=== PATIENT | male | born 1955 | race Two or more races ===

== ENCOUNTER 2019-11-10 08:39 | Inpatient (IN) | payer OTHER, BC ==
[2019-11-10] MEDS ORDERED: ASPIRIN 81 MG CHEWABLE TABLETS PO ONE (08:51)
[2019-11-10] MEDS ORDERED: ASPIRIN COATED 81 MG TABLET.EC PO ONE (08:57)
--- NOTE | 2019-11-10 09:02 | PDOC ---
History of Present Illness - General Chief Complaint: Chest Pain Stated Complaint: Chest Pain Time Seen by Provider: 11/10/19 08:55 History Source: Patient Exam Limitations: No Limitations - History of Present Illness Initial Comments: 11/10/19 08:59 64y M with PMH of CAD s/p stent x6, PPM, HTN, T2DM presenting to the ER today for chest pain x1 week. Pt states pain is worse with exertion. Associated with SOB. Denies cough, congestion, fever, n/v/d, sick contacts. Stents were placed around 7 years ago at [facility]. He states he was scheduled to get a stress test today but he had a coffee and breakfast and it was cancelled. PMD: Jimmy Cards: none PMH: see hpi PSH: see hpi Meds: carvedilol, glipizide, asa 81mgx2, isosorbide Social: denies Past History - Medical History Allergies/Adverse Reactions: Allergies Allergy/AdvReac Type Severity Reaction Status Date / Time No Known Allergies Allergy Verified 11/10/19 08:48 Home Medications: Ambulatory Orders Aspirin [Aspirin EC] 81 mg PO DAILY 11/10/19 Atorvastatin Calcium 40 mg PO HS 11/10/19 Carvedilol [Coreg -] 12.5 mg PO BID 11/10/19 Glipizide [Glipizide Xl] 10 mg PO BID 11/10/19 Isosorbide Mononitrate [Isosorbide Mononitrate ER] 30 mg PO DAILY 11/10/19 Valsartan 320 mg PO DAILY 11/10/19 metFORMIN HCL [Metformin HCl] 850 mg PO BID 11/10/19 - Psycho-Social/Smoking History Smoking History: Unknown if ever smoked Have you smoked in the past 12 months: No Information on smoking cessation initiated: No - Substance Abuse Hx (Audit-C & DAST Scrn) How often the patient has a drink containing alcohol: Never Score: In Men: 4 or > Positive; In Women: 3 or > Positive: 0 Screen Result (Pos requires Nsg. Audit-10AR): Negative In the last yr the pt used illegal drug/Rx for NonMed reason: No Score: Yes response is considered Positive: 0 Screen Result (Positive result requires Nsg. DAST-10): Negative Review of Systems - Review of Systems Constitutional: No: Symptoms Reported HEENTM: No: Symptoms Reported Respiratory: Yes: See HPI Cardiac (ROS): Yes: See HPI ABD/GI: No: Symptoms Reported : No: Symptoms Reported Musculoskeletal: No: Symptoms Reported Integumentary: No: Symptoms Reported Neurological: No: Symptoms reported *Physical Exam - Vital Signs Last Vital Signs Temp Pulse Resp BP Pulse Ox 98.6 F 90 13 102/75 97 11/10/19 08:42 11/10/19 10:48 11/10/19 10:48 11/10/19 10:48 11/10/19 10:48 - Physical Exam General Appearance: Yes: Nourished, Appropriately Dressed. No: Apparent Distress HEENT: positive: EOMI, MICHELLE Neck: positive: Trachea midline, Supple Respiratory/Chest: positive: Lungs Clear, Normal Breath Sounds. negative: Rapid RR, Decreased Breath Sounds, Paradoxal Breathing, Crackles, Rales, Rhonchi Cardiovascular: positive: Regular Rhythm, S1, S2, Tachycardia. negative: Edema, JVD, Murmur Vascular Pulses: Dorsalis-Pedis (R): 2+, Doralis-Pedis (L): 2+ Gastrointestinal/Abdominal: positive: Normal Bowel Sounds, Soft. negative: Tender Musculoskeletal: negative: CVA Tenderness Extremity: positive: Normal Capillary Refill. negative: Pedal Edema, Swelling, Calf Tenderness Integumentary: positive: Normal Color, Dry, Warm Neurologic: positive: safety inspector II-XII NML intact, Fully Oriented, Alert, Normal Mood/Affect, Normal Response, Motor Strength 5/5 ED Treatment Course - LABORATORY CBC & Chemistry Diagram: 11/10/19 09:05 11/10/19 09:04 - ADDITIONAL ORDERS Additional order review: Laboratory Results 11/10/19 11/10/19 11/10/19 11:30 09:05 09:05 PT with INR 11.90 INR 1.01 PTT (Actin FS) 35.2 Sodium Potassium Chloride Carbon Dioxide Anion Gap BUN Creatinine Est GFR (CKD-EPI)AfAm Est GFR (CKD-EPI)NonAf Random Glucose Calcium Magnesium Total Bilirubin AST ALT Alkaline Phosphatase Creatine Kinase Troponin I 3.44 H* Total Protein Albumin Blood Type O POSITIVE Antibody Screen Negative 11/10/19 09:04 PT with INR INR PTT (Actin FS) Sodium 137 Potassium 4.3 Chloride 104 Carbon Dioxide 24 Anion Gap 9 BUN 19.6 H Creatinine 1.2 Est GFR (CKD-EPI)AfAm 72.59 Est GFR (CKD-EPI)NonAf 62.63 Random Glucose 232 H Calcium 8.9 Magnesium 1.6 L Total Bilirubin 0.8 AST 31 ALT 27 Alkaline Phosphatase 79 Creatine Kinase 117 Troponin I 2.79 H* Total Protein 6.7 Albumin 3.4 Blood Type Antibody Screen 11/10/19 09:05 RBC 4.69 MCV 87.9 MCHC 32.5 RDW 13.7 MPV 7.8 Neutrophils % 57.0 Lymphocytes % 30.2 Monocytes % 7.8 Eosinophils % 3.9 Basophils % 1.1 - RADIOLOGY Radiology Studies Ordered: Category Date Time Status CHEST X-RAY PORTABLE* [RAD] Stat Radiology 11/10/19 08:51 Completed - Medications Given in the ED: ED Medications Discontinued Medications Generic Name Dose Route Start Last Admin Trade Name Freq PRN Reason Stop Dose Admin Aspirin 324 mg 11/10/19 08:51 11/10/19 09:25 Asa - PO 11/10/19 08:52 Not Given ONCE ONE Aspirin 162 mg 11/10/19 08:57 11/10/19 09:25 Ecotrin - PO 11/10/19 08:58 162 mg ONCE ONE Administration Clopidogrel Bisulfate 300 mg 11/10/19 12:03 11/10/19 12:32 Plavix - PO 11/10/19 12:04 300 mg ONCE ONE Administration Heparin Sodium (Porcine) 5,000 unit 11/10/19 12:04 11/10/19 13:05 Heparin - SQ 11/10/19 12:05 5,000 unit ONCE ONE Administration Nitroglycerin 0.4 mg 11/10/19 10:35 11/10/19 10:39 Nitrostat - SL 11/10/19 10:36 0.4 mg ONCE ONE Administration Medical Decision Making - Medical Decision Making 11/10/19 14:05 64y m with pmh of cad s/p stent x6, ppm, htn, hld presenting to the er for exertional cp and [place]. vitals; tachycardic otherwise wnl ekg: normal rate, twi in v1. biphasic t wave in V2? ddx includes mi, less likely pe, pna, ptx, covid -cardiac labs, coags, ts, cbc, cmp -ekg, cxr -asa 162 (pt took 81mg x2 already) normal cbc mag 1.6, electrolytes wnl. trop 2.7. rpt ekg without significant changes. pt still with mild pain, will give SL nitro consulted cardiology: plavix 300mg and heparin. rpt trop 3. endorsed to dr. Jain. admitted to tele 11/10/19 14:07 Discharge - Discharge Information Problems reviewed: Yes Clinical Impression/Diagnosis: NSTEMI (non-ST elevated myocardial infarction) CAD (coronary artery disease) Qualifiers: Coronary Disease-Associated Artery/Lesion type: unspecified vessel or lesion type [place] vs. transplanted heart: [place] heart Associated angina: with unstable angina Qualified Code(s): I25.110 - Atherosclerotic heart disease of [place] coronary artery with unstable angina pectoris Condition: Fair - Admission Yes - Follow up/Referral - Patient Discharge Instructions - Post Discharge Activity
[2019-11-10 09:06] VITALS: BMI 31.3
--- OUTSIDE RECORDS SUMMARY | 2019-11-10 09:07 | XMS ---
:1955 Author Organization [facility] Care Team Providers Name Role Phone Tejinder Novak Unavailable Unavailable Re-disclosure Warning The records that you are about to access may contain information from federally- assisted alcohol or drug abuse programs. If such information is present, then the following federally mandated warning applies: This information has been disclosed to you from records protected by federal confidentiality rules (42 CFR part 2). The federal rules prohibit you from making any further disclosure of this information unless further disclosure is expressly permitted by the written consent of the person to whom it pertains or as otherwise permitted by 42 CFR part 2. A general authorization for the release of medical or other information is NOT sufficient for this purpose. The Federal rules restrict any use of the information to criminally investigate or prosecute any alcohol or drug abuse patient.The records that you are about to access may contain highly sensitive health information, the redisclosure of which is protected by Article 27-F of the [place] [facility] Public Health law. If you continue you may haveaccess to information: Regarding HIV / AIDS; Provided by facilities licensed or operated by the [facility] Office of Mental Health; or Provided by the [facility] Office for People With Developmental Disabilities. If such information is present, then the following [facility] mandated warning applies: This information has been disclosed to you from confidential records which are protected by state law. State law prohibits you from making any further disclosure of this information without the specific written consent of the person to whom it pertains, or as otherwise permitted by law. Any unauthorized further disclosure in violation of state law may result in a fine or intermediate sentence or both. A general authorization for the release of medical or other information is NOT sufficient authorization for further disclosure. Allergies and Adverse Reactions Type Description Substance Reaction Status Data Source(s ) LISINOPRIL Amino Acids cough, rash [facility] ([facility] ) Encounters Encounter Providers Location Date Indications Data Source(s ) Outpatient Attender: Tejinder Novak 08/01/2019 [facility] EN ([facility] 07:58:00 [facility] ) Outpatient Attender: Tejinder Job 08/02/2018 [facility] EN ([facility] 08:59:00 PM [facility]) Medications Medication Brand Start Product Dose Route Administrative Pharmacy [facility] Indications Reaction Description Data Name Date Form Instructions Instructions Source(s) Losartan LOSART take 1 tablet RP NEXTGEN Potassium AN by oral route ( [facility] 100 MG Oral POTASS every day M edical - Tablet 100 IUM [facility] [place] mg 100 mg [facility] ) This may be an active medication. No end date is available. Start date above may not reflect actual date the medication was s tarted. Metformin METFORMIN HCL take 1 tablet RP [facility] hydrochloride 850 MG by oral route ([facility] Oral Tablet 850 mg 2 times every Medical - [facility] 850 mg day with [facility] morning and Group [facility] ) evening meals This may be an active medication. No end date is available. Start date above may not reflect actual date the medication was s tarted. Aspirin 81 MG ASPIRIN take 2 tablet by RP NEXTGEN ([facility] Chewable Tablet 81 oral route every [facility] - [facility] [place] mg 81 mg day Medical Joan up ) This may be an active medication. No end date is available. Start date above may not reflect actual date the medication was s tarted. 125 mcg (5,000 unit) take 1 capsule by RP NEXTGEN ([facility] 125 mcg (5,000 unit) oral route every [facility] week for 1 morning [facility] ) This may be an active medication. No end date is available. Start date above may not reflect actual date the medication was s tarted. clopidogrel 75 MG CLOPIDOGREL take 1 tablet RP NEXTGEN ([facility] Oral Tablet 75 mg 75 by oral route [facility] - [place] mg every day Medical Gr oup PC) This may be an active medication. No end date is available. Start date above may not reflect actual date the medication was s tarted. carvedilol 12.5 CARVEDILOL 08/02/2018 TAKE 1 AND RP [facility] MG Oral Tablet 12:00:00 AM EDT 1/2 TABLETS ([facility] 12.5 mg 12.5 mg TWICE A DAY Medical - [facility]) This may be an active medication. No end date is available. Fenofibrate 160 FENOFIBRATE 05/22/2015 take 1 RP NEXT[facility] MG Oral Tablet 12:00:00 AM EDT tablet by ([facility] 160 mg 160 mg oral route [facility] every day [facility]) This may be an active medication. No end date is available. atorvastatin 40 ATORVASTATIN 04/16/2015 take 1 RP [facility] MG Oral Tablet CALCIUM 12:00:00 AM tablet by ([facility] 40 mg 40 mg EST oral [facility] route [facility] every day Group PC) This may be an active medication. No end date is available. Insurance Providers Payer name Policy type Policy ID Covered Covered republican's Policy P paradise / Coverage republican ID relationship to [employer] type [employer] PPO [id number] SP [id number] MEDICARE [id number] SP [id number] [place] [id number] 1 [id number] Plan [facility]
[2019-11-10] MEDS ORDERED: ASPIRIN 81 MG CHEWABLE TABLETS ONE (09:17)
[2019-11-10 09:47] LABS: BASO % 1.1 % (0-2.0); EOS % 3.9 % (0-4.5); HEMATOCRIT 41.3 % (35.4-49); HEMOGLOBIN 13.4 GM/dL (11.7-16.9); LYMPH % 30.2 % (8-40); MCH 28.6 pg (25.7-33.7); MCHC 32.5 g/dl (32.0-35.9); MEAN CELL VOLUME 87.9 fl (80-96); MEAN PLT VOLUME 7.8 fl (7.5-11.1); MONO % 7.8 % (3.8-10.2); PLATELET COUNT 233 K/MM3 (134-434); RBC 4.69 M/mm3 (4.00-5.60); RDW 13.7 % (11.9-15.9)
[2019-11-10 09:55] LABS: INR 1.01 (0.83-1.09); PROTHROMBIN TIME (PATIENT) 11.9 SEC (9.7-13.0)
[2019-11-10 09:58] LABS: ACTIVATED PTT 35.2 SECONDS (25.2-36.5)
[2019-11-10 10:20] LABS: ALBUMIN 3.4 g/dl (3.4-5.0); BILIRUBIN,TOTAL 0.8 mg/dL (0.2-1); BLOOD UREA NITROGEN 19.6 mg/dL (7-18); CALCIUM 8.9 mg/dL (8.5-10.1); CREATININE 1.2 mg/dL (0.55-1.3); MAGNESIUM 1.6 mg/dL (1.8-2.4); POTASSIUM 4.3 mmol/L (3.5-5.1); TOT PROT 6.7 g/dl (6.4-8.2)
[2019-11-10] MEDS ORDERED: NITROGLYCERIN SUBLINGUAL 1/150 0.4 MG TAB SL ONE (10:35)
[2019-11-10] MEDS ORDERED: CLOPIDOGREL BISULFATE 300 MG TABLET PO ONE (12:03)
[2019-11-10] MEDS ORDERED: HEPARIN NA (PORCINE) 5,000 UNITS/ML 1ML VIAL SQ ONE (12:04)
[2019-11-10] MEDS ORDERED: HEPARIN NA (PORCINE) 5,000 UNITS/ML 1ML VIAL IVPUSH PRN ×2 (12:06)
[2019-11-10] MEDS ORDERED: CLOPIDOGREL BISULFATE 300 MG TABLET ONE (12:14)
[2019-11-10] MEDS ORDERED: HEPARIN INFUSION - 25,000 UNITS/500 ML INFUS.BAG IVPB ONE (12:14)
[2019-11-10] MEDS ORDERED: HEPARIN SOD,PORK IN 0.45% NACL 25,000 UNITS/500 ML INFUS.BAG IVPB SCH (12:15)
[2019-11-10] MEDS ORDERED: HEPARIN NA (PORCINE) 5,000 UNITS/ML 1ML VIAL ONE (13:06)
--- NOTE | 2019-11-10 13:19 | PDOC ---
Documentation entered by Mp Martin SCRIBE, acting as scribe for Norma Young MD. Norma Young MD: This documentation has been prepared by the Franklyn nolan inMp SCRIBE, under my direction and personally reviewed by me in its entirety. I confirm that the documentation accurately reflects all work, treatment, procedures, and medical decision making performed by me. Attending Attestation - Resident Resident Name: OksanaLisandra - ED Attending Attestation I have performed the following: I have examined & evaluated the patient, The case was reviewed & discussed with the resident, I agree w/resident's findings & plan, Exceptions are as noted - HPI HPI: 11/10/19 10:27 The patient is a 64 year old male with a significant past medical history of CAD (6 stents), DM, PPM, and HTN who presents to the emergency department for evaluation of chest pain that began one week ago. The patient reports pain is worsened with exertion and associated with shortness of breath. He endorses having a stress test today but drank coffee and had breakfast this morning, causing it to be cancelled. Denies sick contacts. The patient denies chest/abdominal/back pain, cough and congestion. Denies fever, chills, nausea, vomiting, and/or any GI symptoms. Denies any symptoms. Denies any other symptoms. Allergies: NKA Social Hx: None reported Surgical Hx: 6 stents (about 7 years ago, [facility]) PCP: Dr. Marquez - Physicial Exam PE: 11/10/19 12:46 Agree with resident exam. Patient is alert and oriented x 3 and in no acute distress. Pulm: CTA b/l CV:rrr no m/r/g Abd; soft, non tender, non distended, no guarding or rebound. - Critical Care Time Total Critical Care Time: 30 Critical Care Statement: The care of this patient involved high complexity decision making to prevent further life threatening deterioration of the patient's condition and/or to evaluate & treat vital organ system(s) failure or risk of failure. - Medical Decision Making 11/10/19 13:08 Pt presents to the ED complaining of exertional chest pain and shortness of breath for one week. Denies fever, cough. Now is complaining of some chest pain at rest. Presented for stress test today, sent to the ED because of on going chest pain. EKG shows no acute ischemia, but troponins are positive. chest pain free after sublingual ntg. Case discussed with Meeta from cardiology. Will admit to medicine, start heparin drip and plavix. Will monitor serial troponins. 11/10/19 13:18 11/10/19 13:18 11/10/19 13:18 Discharge - Discharge Information Problems reviewed: Yes Clinical Impression/Diagnosis: NSTEMI (non-ST elevated myocardial infarction) CAD (coronary artery disease) Qualifiers: Coronary Disease-Associated Artery/Lesion type: unspecified vessel or lesion type [place] vs. transplanted heart: [place] heart Associated angina: with unstable angina Qualified Code(s): I25.110 - Atherosclerotic heart disease of [place] coronary artery with unstable angina pectoris Condition: Stable Disposition: TRANSFER ACUTE CARE/OTHER HOSP - Follow up/Referral - Patient Discharge Instructions - Post Discharge Activity
--- NOTE | 2019-11-10 13:27 | HP ---
Admitting History and Physical - Primary Care Physician PCP: Kj Marquez - Admission Chief Complaint: chest pain History of Present Illness: - History of Present Illness Initial Comments: 11/10/19 08:59 64y M with PMH of CAD s/p stent x6, PPM, HTN, T2DM presenting to the ER today for chest pain x1 week. Pt states pain is worse with exertion. Associated with SOB. Denies cough, congestion, fever, n/v/d, sick contacts. Stents were placed around 7 years ago at [facility]. He states he was scheduled to get a stress test today but he had a coffee and breakfast and it was cancelled. PMD: Jimmy Cards: PMH: see hpi PSH: see hpi Meds: carvedilol, glipizide, asa 81mgx2, isosorbide Social: denies Pt examined by me in the ER spoke with cardiology and ER MD Pt has been c/o exertional chest pain x 1 week. He went to see his PMD yesterday and did an EKG and ordered stress test as an outpatient Last night , he had worsening left sided chest pain -- pressure and burning like with radiation to left shoulder and back He came to the ER when he was told that stress test was cancelled ER course -- elevated troponins-- now on Heparin gtt received Plavix and ASA full dose Pt currently states he feels better - ambulated to the bathroom twice without feeling SOB or chest pain. He currently has a mild chest discomfort History Source: Patient Limitations to Obtaining History: No Limitations - Past Medical History Cardiovascular: Yes: CAD (s/p STENTS), CHF (s/p AICD), HTN Endocrine: Yes: Diabetes Mellitus - Past Surgical History Past Surgical History: Yes: AICD - Smoking History Smoking history: Unknown if ever smoked Have you smoked in the past 12 months: No Home Medications - Allergies Allergies/Adverse Reactions: Allergies Allergy/AdvReac Type Severity Reaction Status Date / Time No Known Allergies Allergy Verified 11/10/19 08:48 - Home Medications Home Medications: Ambulatory Orders Aspirin [Aspirin EC] 81 mg PO DAILY 11/10/19 Atorvastatin Calcium 40 mg PO HS 11/10/19 Carvedilol [Coreg -] 12.5 mg PO BID 11/10/19 Glipizide [Glipizide Xl] 10 mg PO BID 11/10/19 Isosorbide Mononitrate [Isosorbide Mononitrate ER] 30 mg PO DAILY 11/10/19 Valsartan 320 mg PO DAILY 11/10/19 metFORMIN HCL [Metformin HCl] 850 mg PO BID 11/10/19 Review of Systems - Review of Systems Constitutional: denies: Chills, Fever, Night Sweats Cardiovascular: reports: Chest Pain. denies: Edema, Shortness of Breath Respiratory: denies: Cough, SOB on Exertion Physical Examination Vital Signs: Vital Signs Temperature 98.6 F 11/10/19 08:42 Pulse Rate 90 11/10/19 10:48 Respiratory Rate 13 11/10/19 10:48 Blood Pressure 102/75 11/10/19 10:48 O2 Sat by Pulse Oximetry (%) 97 11/10/19 10:48 Constitutional: Yes: No Distress, Calm Cardiovascular: Yes: Regular Rate and Rhythm Respiratory: Yes: CTA Bilaterally Gastrointestinal: Yes: Normal Bowel Sounds, Soft. No: Tenderness Edema: No Psychiatric: Yes: Alert, Oriented Labs: CBC, BMP 11/10/19 09:05 11/10/19 09:04 Imaging - Results Chest X-ray: Image Reviewed EKG: Image Reviewed Problem List - Problems (1) NSTEMI (non-ST elevated myocardial infarction) Code(s): I21.4 - NON-ST ELEVATION (NSTEMI) MYOCARDIAL INFARCTION (2) CAD (coronary artery disease) Code(s): I25.10 - ATHSCL HEART DISEASE OF [place] CORONARY ARTERY W/O ANG PCTRS (3) Systolic CHF Code(s): I50.20 - UNSPECIFIED SYSTOLIC (CONGESTIVE) HEART FAILURE (4) Diabetes type 2, controlled Code(s): E11.9 - TYPE 2 DIABETES MELLITUS WITHOUT COMPLICATIONS (5) HTN (hypertension) Code(s): I10 - ESSENTIAL (PRIMARY) HYPERTENSION (6) Hyperlipidemia Code(s): E78.5 - HYPERLIPIDEMIA, UNSPECIFIED Assessment/Plan PLAN heparin GTT received ASA and Plavix trend cardiac enzymes DM -- holding Metformin and Glipizide for now Spoke with Cardiology-- for transfer to [facility] Today for cardiac cath DVT px-- Heparin GTT Hyperlipidemia-- increase Lipitor to full dose
--- NOTE | 2019-11-10 13:28 | CON.CARD ---
Cardiology Consult (text) - Consultation Consultation Note: cc: cp hpi: 64 m hx cad s/p several MIs and remote pci, syst chf s/p ICD, htn, hld, dm here with cp. Past week he has noticed mild left chest pressure with radiation to jaw. Occurs at rest or exertion, worse with exertion. No associated sxs. No sob palps dizzy loc pnd orthopnea le edema. Does not follow with cardio. pmh: per hpi psh: icd, pci social: no tob fam: no premature cad scd ros: per hpi; all others nl medS: Home Medications Medication Instructions Recorded Aspirin [Aspirin EC] 81 mg PO DAILY 11/10/19 Atorvastatin Calcium 40 mg PO HS 11/10/19 Carvedilol [Coreg -] 12.5 mg PO BID 11/10/19 Glipizide [Glipizide Xl] 10 mg PO BID 11/10/19 Isosorbide Mononitrate [Isosorbide 30 mg PO DAILY 11/10/19 Mononitrate ER] Valsartan 320 mg PO DAILY 11/10/19 metFORMIN HCL [Metformin HCl] 850 mg PO BID 11/10/19 pe: Vital Signs Temp 98.6 F 11/10/19 08:42 Pulse 90 11/10/19 10:48 Resp 13 11/10/19 10:48 BP 102/75 11/10/19 10:48 Pulse Ox 97 11/10/19 10:48 Intake & Output 11/09/19 11/10/19 11/10/19 23:59 11:59 23:59 Weight 206 lb Other: Height 5 ft 8 in Body Mass Index (BMI) 31.3 Weight Measurement Method Est/Stated by Patient nad no jvd rrr s1s2 no mrg cta bl nl eff aao3 no le e/c/c abd nt nd pos bs no jaundice diaphoresis pos dp pt no carotid bruits Laboratory Last Values WBC 9.0 K/mm3 (4.0-10.0) 11/10/19 09:05 RBC 4.69 M/mm3 (4.00-5.60) 11/10/19 09:05 Hgb 13.4 GM/dL (11.7-16.9) 11/10/19 09:05 Hct 41.3 % (35.4-49) 11/10/19 09:05 MCV 87.9 fl (80-96) 11/10/19 09:05 MCH 28.6 pg (25.7-33.7) 11/10/19 09:05 MCHC 32.5 g/dl (32.0-35.9) 11/10/19 09:05 RDW 13.7 % (11.9-15.9) 11/10/19 09:05 Plt Count 233 K/MM3 (134-434) 11/10/19 09:05 MPV 7.8 fl (7.5-11.1) 11/10/19 09:05 Absolute Neuts (auto) 5.1 K/mm3 (1.5-8.0) 11/10/19 09:05 Neutrophils % 57.0 % (42.8-82.8) 11/10/19 09:05 Lymphocytes % 30.2 % (8-40) 11/10/19 09:05 Monocytes % 7.8 % (3.8-10.2) 11/10/19 09:05 Eosinophils % 3.9 % (0-4.5) 11/10/19 09:05 Basophils % 1.1 % (0-2.0) 11/10/19 09:05 Nucleated RBC % 0 % (0-0) 11/10/19 09:05 PT with INR 11.90 SEC (9.7-13.0) 11/10/19 09:05 INR 1.01 (0.83-1.09) 11/10/19 09:05 PTT (Actin FS) 35.2 SECONDS (25.2-36.5) 11/10/19 09:05 Sodium 137 mmol/L (136-145) 11/10/19 09:04 Potassium 4.3 mmol/L (3.5-5.1) 11/10/19 09:04 Chloride 104 mmol/L (98-107) 11/10/19 09:04 Carbon Dioxide 24 mmol/L (21-32) 11/10/19 09:04 Anion Gap 9 MMOL/L (8-16) 11/10/19 09:04 BUN 19.6 mg/dL (7-18) H 11/10/19 09:04 Creatinine 1.2 mg/dL (0.55-1.3) 11/10/19 09:04 Est GFR (CKD-EPI)AfAm 72.59 09/24/20 09:04 Est GFR (CKD-EPI)NonAf 62.63 11/10/19 09:04 Random Glucose 232 mg/dL (74-106) H 11/10/19 09:04 Calcium 8.9 mg/dL (8.5-10.1) 11/10/19 09:04 Magnesium 1.6 mg/dL (1.8-2.4) L 11/10/19 09:04 Total Bilirubin 0.8 mg/dL (0.2-1) 11/10/19 09:04 AST 31 U/L (15-37) 11/10/19 09:04 ALT 27 U/L (13-61) 11/10/19 09:04 Alkaline Phosphatase 79 U/L (45-117) 11/10/19 09:04 Creatine Kinase 117 U/L (26-308) 11/10/19 09:04 Troponin I 3.44 ng/ml (0.00-0.05) H* 11/10/19 11:30 Total Protein 6.7 g/dl (6.4-8.2) 11/10/19 09:04 Albumin 3.4 g/dl (3.4-5.0) 11/10/19 09:04 Blood Type O POSITIVE 11/10/19 09:05 Antibody Screen Negative 11/10/19 09:05 tele: sr ecgs reviewed: sr 1st avb nl qtc no ischemic changes cxr: clear a/p: 64 m hx cad s/p several MIs and remote pci, syst chf s/p ICD, htn, hld, dm here with cp. cad, cp, NSTEMI: -symptoms, elevataed trop consistent with NSTEMI -cont hep gtt, asa, load with plavix 300, cont statin, bb, arb -d/w interventionalist, plan for transfer to [facility] today -monitor on tele chronic syst chf: -stable vol status off diuretics -cont arb,bb -check echo -outpt ICD checks htn: -cont bb, arb hld: -stable on statin
--- NOTE | 2019-11-10 14:02 | EKG ---
Test Reason : Blood Pressure : / mmHG Vent. Rate : 094 BPM Atrial Rate : 063 BPM P-R Int : 000 ms QRS Dur : 082 ms QT Int : 482 ms P-R-T Axes : 000 -27 080 degrees QTc Int : 602 ms SINUS RHYTHM WITH 1ST DEGREE A-V BLOCK SEPTAL INFARCT (CITED ON OR BEFORE 10-NOV-2019) PROLONGED QT ABNORMAL ECG Confirmed by GREGORY BAEZ MD ([id number]) on 11/10/2019 2:01:56 PM Referred By: Confirmed By:GREGORY BAEZ MD
--- NOTE | 2019-11-10 14:04 | EKG ---
Test Reason : Blood Pressure : / mmHG Vent. Rate : 096 BPM Atrial Rate : 096 BPM P-R Int : 290 ms QRS Dur : 088 ms QT Int : 322 ms P-R-T Axes : 027 -23 122 degrees QTc Int : 406 ms SINUS RHYTHM WITH 1ST DEGREE A-V BLOCK POSSIBLE LEFT ATRIAL ENLARGEMENT SEPTAL INFARCT , AGE UNDETERMINED ABNORMAL ECG NO PREVIOUS ECGS AVAILABLE Confirmed by GREGORY BAEZ MD ([id number]) on 11/10/2019 2:03:55 PM Referred By: Confirmed By:GREGORY BAEZ MD
--- OUTSIDE RECORDS SUMMARY | 2019-11-10 14:39 | XMS ---
:1955 Author Organization [facility] Care Team Providers Name Role Phone Kishore, Tejinder Unavailable Unavailable Re-disclosure Warning The records that [...] is protected by Article 27-F of the [facility] Public Health law. If you continue you may haveaccess to information: Regarding HIV / AIDS; Provided by facilities licensed or operated by the [facility] Office of Mental Health; or Provided by the [facility] Office for People With Developmental Disabilities. If such information is present, then the following [facility] mandated warning applies: This information has been [...] law may result in a fine or alf sentence or both. A general authorization for the release of medical or other information is NOT sufficient authorization for further disclosure. Allergies and Adverse Reactions Type Description Substance Reaction Status Data Source(s ) LISINOPRIL Amino Acids cough, rash [facility] ([facility]) Encounters Encounter Providers Location Date Indications Data Source(s ) Outpatient Attender: Tejinder Job 08/01/2019 NEXTG EN ([facility] 07:58:00 [facility] [place] [facility] Outpatient Attender: Tejinder Job 08/02/2018 [facility]EXTG EN ([facility] 08:59:00 [facility] [place] [facility] ) Medications Medication Brand Start Product Dose Route Administrative Pharmacy [facility] Indications Reaction Description Data Name Date Form Instructions Instructions Source(s) Losartan LOSART take 1 tablet RP NEXTGEN Potassium AN by oral route ( [facility] 100 MG Oral POTASS every day edical - Tablet 100 [facility] [place] [...] Tablet 81 oral route every [facility] [place] mg 81 mg day [facility] up ) This may be an active medication. No end date is available. Start date above may not reflect actual date the medication was s tarted. 125 mcg (5,000 unit) take 1 capsule by RP NEXTGEN ([facility] 125 mcg (5,000 unit) oral route [facility] [place] [facility] This may be an active [...] mg 12.5 mg TWICE A DAY Medical [facility]) This may be an active medication. No end date is available. Fenofibrate 160 FENOFIBRATE 05/22/2015 take 1 RP [facility]EXTGEN MG Oral Tablet 12:00:00 AM EDT tablet by ([facility] 160 mg 160 mg oral route [facility] every day [facility]) This may be an active medication. No end date is available. atorvastatin 40 ATORVASTATIN 04/16/2015 take 1 RP NEXTGEN MG Oral Tablet CALCIUM 12:00:00 AM tablet by ([facility] 40 mg 40 mg EST oral [facility] [place] route [facility] every day [facility]) This may be an active medication. No end date is available. Insurance Providers Payer name Policy type Policy ID Covered Covered libertarian's Policy P paradise / Coverage libertarian ID relationship to [employer] type [employer] PPO [id number] SP [id number] MEDICARE [id number] SP [id number] [id number] Plan [facility]
[2019-11-10] MEDS ORDERED: ACETAMINOPHEN 325 MG TABLET (FP) PO PRN (15:28)
[2019-11-10] MEDS ORDERED: INSULIN SLIDING SCALE (NOVOLOG) 1 VIAL SQ SCH (16:30)
[2019-11-10 18:08] VITALS: BP 131/85; PULSE 81; TEMP 97.3
[2019-11-10] MEDS ORDERED: ATORVASTATIN CA 80 MG TABLET (FP) PO SCH (22:00)
[2019-11-10] MEDS ORDERED: CARVEDILOL 12.5 MG TABLET (FP) PO SCH (22:00)
[2019-11-11] MEDS ORDERED: VALSARTAN 160 MG TABLET PO SCH (10:00)
== END 2019-11-10 18:27 | disposition short-term general hospital (02) | DRG 281 ==
LOC: JER 08:39 → JERBED 13:10 → J4S 14:27
PROVIDERS: ADMIT Internal Medicine; ATTEND Internal Medicine
DX: I21.4 Non-ST elevation (NSTEMI) myocardial infarction (principal); I50.22 Chronic systolic (congestive) heart failure; R07.9 Chest pain, unspecified; I25.10 Atherosclerotic heart disease of native coronary artery without angina pectoris; Z95.5 Presence of coronary angioplasty implant and graft; E11.9 Type 2 diabetes mellitus without complications; E78.5 Hyperlipidemia, unspecified; I11.0 Hypertensive heart disease with heart failure
CPT/HCPCS: 36415; 71045-TC-FY; 80053; 82550; 82962; 83735; 84484; 85025; 85610; 85730; 86850; 86900; 86901; 93005; 93010; 99291; J1644; U0003